=== PATIENT | female | born 1980 | race Caucasian/White ===

== ENCOUNTER 2018-05-07 13:00 | Inpatient (IN) | payer OTHER ==
[~2018-05-07] VITALS: Ht 162.6 cm; Wt 125.0 kg
[~2018-05-07 13:00] MED LIST: METOCLOPRAMIDE10 MG PO; PREPLUS CA-FE1 EACH PO; PROVENTIL HFA6.7 GM INH
--- NOTE | 2018-05-17 09:06 | NUR ---
05/17/18 0906 Nataliya Sanchez 0818 PT ARRIVED TO PACU AWAKE AND DENIES PAIN AND NAUSEA. PT ITCHY AND EDUCATION GIVEN ABOUT MEDICATION AND ITCHINESS. RESP EVEN AND UNLABORED.
--- NOTE | 2018-05-18 07:32 | PR ---
[facility] [address] [place], [place] [address] Signed PP Progress Notes Datetime Report Generated by CPPetar: 05/18/2018 07:32 SUBJECTIVE: [id number] Pain: Within normal limits Nausea/Vomiting: Denies Flatus: Yes Bowel Movement: No Vital Signs: [id number] Vital Signs: Reviewed EXAM: [id number] Cardiovascular: Normal Respiratory: Normal Abdomen/Uterus: Normal Lochia: Normal Vulva/Perineum: Not Done Breasts: Not Done CVA Tenderness: Normal Extremities: Abnormal Incision: Normal Progress: Abnormal Exam Comments: Fundus firm U-2 nontender. Midline incision well healing w/ miguel angel in place. LE w/ unchanged chronic lymphedema. IMPRESSION/PLAN/PROCEDURES: [id number] Impression: Normal progression Plan: Continue present management Progress Notes: Pt seen and examined. Doing well. Ambulating and tolerating full diet. Davila cath recently removed and pt has not voided yet. Pain well controlled with tylenol and occasional motrin. No GI upset. having difficulty w/ and bottlefeeding per pt. No fevers/chills/discharge. No other concerns. Hgb this morning 9.8. Continue routine pp care and will work w/ RN and peds on feeding. Signing Physician: Josiah Betancourt DO Copies: ~ *Electronically Signed* 05/18/18 0732 JOSIAH BETANCOURT DO PATIENT NAME: MARY LEACH PROGRESS NOTE DATE OF : 76 PHYSICIAN: JOSIAH BETANCOURT DO [facility] #: [id number] REPORT IS CONFIDENTIAL AND NOT TO BE RELEASED WITHOUT AUTHORIZATION
--- NOTE | 2018-05-19 08:53 | PR ---
[facility] [address] [place], [place] [address] Signed PP Progress Notes Datetime Report Generated by CPN: 05/19/2018 08:52 SUBJECTIVE: [id number] Pain: Within normal limits Nausea/Vomiting: Denies Flatus: Yes Bowel Movement: Yes Vital Signs: [id number] Vital Signs: Reviewed; Within Normal Limits EXAM: [id number] Cardiovascular: Normal Respiratory: Normal Abdomen/Uterus: Normal Lochia: Normal Vulva/Perineum: Not Done Breasts: Not Done CVA Tenderness: Normal Extremities: Abnormal Incision: Normal Progress: Normal Exam Comments: Fundus firm U-2, incision well healing w/ miguel angel in place. Stable LE edema IMPRESSION/PLAN/PROCEDURES: [id number] Impression: Normal progression Other Impression: Rh neg, rhogam prior to discharge Plan: Discharge Progress Notes: Pt seen and examined. Doing well. Ambulating, voiding, and tolerating full diet. Pain well controlled with tylenol alone. No GI upset. having difficulty w/ and bottlefeeding per pt. No fevers/chills/discharge. No other concerns. Desires d/c home today. Postop hgb 9.8. Plan: d/c home today. Reviewed pp instructions in detail. F/U early next week in office for staple removal. Pain well controlled w/ tylenol alone. Rhogam prior to discharge. Signing Physician: Josiah Betancourt DO Copies: ~ *Electronically Signed* 05/19/18 0872 JOSIAH BETANCOURT DO PATIENT NAME: HAYLEEMARY PROGRESS NOTE DATE OF : 76 PHYSICIAN: JOSIAH BETANCOURT DO RPT #: [id number] REPORT IS CONFIDENTIAL AND NOT TO BE RELEASED WITHOUT AUTHORIZATION
--- NOTE | 2018-05-27 13:12 | OR ---
[facility] [address] [place], [place] [address] Signed DATE OF OPERATION: 05/17/2018 SURGEON: Josiah Betancourt DO PREOPERATIVE DIAGNOSES: 1. Intrauterine at 38 weeks and 5 days' gestation. 2. History of prior low-transverse delivery. 3. Severe microcytic anemia secondary to malabsorption. 4. History of Gilma-en-Y. 5. Morbid obesity. 6. Rh negative, status post RhoGAM. 7. Desires tubal ligation. 8. History of pelvic adhesions. POSTOPERATIVE DIAGNOSES: 1. Intrauterine at 38 weeks and 5 days' gestation. 2. History of prior low-transverse delivery. 3. Severe microcytic anemia secondary to malabsorption. 4. History of Gilma-en-Y. 5. Morbid obesity. 6. Rh negative, status post RhoGAM. 7. Desires tubal ligation. 8. History of pelvic adhesions. PROCEDURES PERFORMED: 1. Repeat low transverse delivery. 2. Right partial salpingectomy. 3. Lysis of adhesions. MANAGER ENT: Lucinda López MD ANESTHESIA: Spinal. ESTIMATED BLOOD LOSS: 600 mL. COMPLICATIONS: None. Electronically Signed By: JOSIAH BETANCOURT DO 05/27/18 1312 PATIENT NAME: MARY TORIBIO OPERATIVE REPORT DATE OF : 76 REPORT #: [id number] PHYSICIAN: JOSIAH BETANCOURT DO PCP: ELZA MATT PA-C REPORT IS CONFIDENTIAL AND NOT TO BE RELEASED WITHOUT AUTHORIZATION [facility] [address] [place], [place] [address] Signed SPECIMENS: None. FINDINGS: Viable female , born in the W[place] position, weighing 6 pounds 10 ounces with Apgars of 8 and 9 at 1 and 5 minutes respectively. Normal bilateral ovaries and status post partial salpingectomy on the left. The lower uterine segment was quite thin that was reapproximated with one layer closure. Some adhesion of the omentum to the colon, which was lysed without difficulty. Otherwise, the remainder of the pelvis was fairly free of adhesive disease. COMPLICATIONS: None. INDICATIONS: Ms. Toribio is a pleasant 37-year-old G P white female who presented to Labor and Delivery for scheduled repeat low transverse delivery. was quite complicated by history of morbid obesity, status post Gilma-en-Y that led to severe malabsorption and iron-deficiency anemia. She also had a prior delivery and that the op note was significant for severe pelvic adhesions. The patient underwent IV iron infusions, but remained severely iron-deficient anemic and she was sent to Maternal Medicine for recommendations. They recommended either Epogen or preoperative transfusion and Hematology recommended preoperative transfusion. The patient received 2 units of packed red blood cells earlier in the week and 2 units of packed red blood cells were on standby if needed today. The patient also desired tubal ligation and an ethics committee letter was on file approving this. Risks, benefits, and alternatives were discussed in detail. The patient understands and wishes to proceed with the procedures. TECHNIQUE: The patient was taken to the operating room. A time-out was performed to confirm correct patient, correct procedure. Spinal anesthesia was adequately established and the patient was prepped and draped in the supine position with a bump under the right hip. Ancef 3 g were given preoperatively per SCIP protocol and the patient received preoperative heparin due to an elevated Caprini score. A Davila catheter was inserted and ICPs were on and running. After spinal was tested and found to be adequate, a midline incision was made over the prior scar using a surgical scalpel. The skin was incised and the subcu was dissected using Bovie electrocautery. Good hemostasis was achieved. The fascia was then incised using a surgical scalpel and a small window was created. The peritoneum was then entered bluntly and fascial and peritoneal incision were extended cephalad, caudad after careful palpation to ensure no Electronically Signed By: JOSIAH BETANCOURT DO 05/27/18 1312 PATIENT NAME: MARY TORIBIO OPERATIVE REPORT DATE OF : 76 REPORT #: [id number] PHYSICIAN: JOSIAH BETANCOURT DO PCP: ELZA MATT PA-C REPORT IS CONFIDENTIAL AND NOT TO BE RELEASED WITHOUT AUTHORIZATION [address] [address] Signed adhesive disease was encountered. After the fascia was opened adequately, the uterus and pelvis were examined and no significant pelvic adhesions were noted at this time. The lower segment was identified and was noted to be somewhat thin. An Leon self-retractor was then placed. The lower uterine segment was re-identified and incised using a surgical scalpel. The uterine segment was quite thin and hysterotomy was extended bilaterally using blunt dissection. The amniotic sac was ruptured and clear fluid was noted. The was then delivered with the assistance of fundal pressure without difficulty. No nuchal cord was identified. The was vigorous and cried at delivery, and the cord was doubly clamped and cut. The was handed to awaiting pediatric team for further care. Cord blood was obtained for routine analysis and then the placenta was manually expressed intact with centrally inserted three-vessel cord. The uterus was exteriorized and the uterine cavity cleared of any remaining products of conception or clot. Hysterotomy was then repaired using 0 Vicryl in a running locked manner. A small amount of oozing was noted in the midline. This was made hemostatic with a ptrfga-jy-eqoiu of 0 Vicryl and judicious Bovie electrocautery. A small amount of oozing was then noted after the pelvis was irrigated with warm water at the left edge of the hysterotomy. This was made hemostatic with several sutures of 0 Vicryl in bgepja-ip-[id number] manners with careful attention. Freddy powder was applied to the lower uterine segment and after hemostasis was appreciated, the Leon retractor was removed. Attention was then turned to tubal ligation. The left tube was noted to be previously undergone a partial left salpingectomy. Attention was then turned to the right fallopian tube, which appeared normal. It was grasped with Alfa's, elevated, and the mesosalpinx was noted to have increased vasculature. A clear space in the mesosalpinx was identified and entered using Bovie electrocautery. The tube was then clamped on either side of the window using hemostats and a portion of the tube was sharply excised using Metzenbaum scissors. Cut portions of the fallopian tube were ligated using 0 chromic free ties and good hemostasis was appreciated. The ovaries bilaterally were noted to be normal. A portion of the tube was sent to Pathology for further evaluation. The peritoneum, rectus, and fascia were densely scarred together and the decision was made to close these in a modified mass closure. The fascia was grasped with Jerrell's and elevated and mass closure was performed with 0 PDS in a running nonlocked manner. After each stitch, careful palpation of the anterior abdominal wall was performed to ensure that no bowel injury had been performed. Prior to fascial closure, one small band of adhesion of the omentum to the colon was noted. This was clamped on either end using hemostats and a portion of the band was excised. The omental edges were made hemostatic with 0 chromic with good hemostasis. After the fascial incision was closed, the subcu was irrigated and made hemostatic with a combination of Bovie electrocautery and Freddy powder. After good hemostasis was appreciated, ACell powder was applied to the subcu layer and subcu was reapproximated using 2-0 Vicryl in a running nonlocked manner. Skin was then reapproximated using surgical miguel angel. One portion of the incision was somewhat raw and this was reinforced with a subcuticular stitch of 4-0 Vicryl. The uterus was then Crede'd for scant amount Electronically Signed By: JOSIAH BETANCOURT DO 05/27/18 1312 PATIENT NAME: MARY TORIBIO OPERATIVE REPORT DATE OF : 76 REPORT #: [id number] PHYSICIAN: JOSIAH BETANCOURT DO PCP: ELZA MATT PA-C REPORT IS CONFIDENTIAL AND NOT TO BE RELEASED WITHOUT AUTHORIZATION [facility] [address] [place] [id number] Signed of blood, and the patient was taken to the PACU in good stable condition. Sponge, needle, and instrument count were correct x2 at the end of the procedure. Dr. López was present and participated in all portions of the procedure. Josiah Betancourt DO JDW/MODL /[id number] Copies: ~ Electronically Signed By: JOSIAH BETANCOURT DO 05/27/18 1312 PATIENT NAME: MARY TORIBIO OPERATIVE REPORT DATE OF : 76 REPORT #: [id number] PHYSICIAN: JOSIAH BETANCOURT DO PCP: ELZA MATT PA-C REPORT IS CONFIDENTIAL AND NOT TO BE RELEASED WITHOUT AUTHORIZATION
== END 2018-05-19 09:55 | disposition home or self-care (01) | DRG 784 ==
LOC: FBC 05-17 05:00
PROVIDERS: ADMIT Obstetrics & Gynecology
PROC: 10D00Z1 Extraction of Products of Conception, Low, Open Approach (ICD-10-PCS; principal; 2018-05-17 06:45)
PROC: 0UB50ZZ Excision of Right Fallopian Tube, Open Approach (ICD-10-PCS; 2018-05-17 06:45)
DX: O34.211 Maternal care for low transverse scar from previous cesarean delivery (principal); K90.9 Intestinal malabsorption, unspecified; N85.8 Other specified noninflammatory disorders of uterus; Z3A.38 38 weeks gestation of pregnancy; Z37.0 Single live birth; O99.844 Bariatric surgery status complicating childbirth; Z30.2 Encounter for sterilization; O99.214 Obesity complicating childbirth; E66.01 Morbid (severe) obesity due to excess calories; O99.02 Anemia complicating childbirth; D50.9 Iron deficiency anemia, unspecified; O99.62 Diseases of the digestive system complicating childbirth
CPT/HCPCS: 01961; 36415; 83030; 85027; 86850; 86900; 86901; 86920; C1763; J0131; J0690; J1644; J1650; J2300; J2405; J2590; J2790; J3010; J7120

== ENCOUNTER 2019-09-29 06:45 | Day surgery (SDC) | payer OTHER ==
[~2019-09-29] VITALS: Ht 162.6 cm; Wt 114.3 kg
[2019-09-29] MEDS ORDERED: DAILY MULTIPLE1 EACH PO (06:56)
--- NOTE | 2019-09-29 08:01 | NUR ---
PT ALERT, ORIENTED AND STATED THAT SHE HAS HAD THIS SURGERY BEFORE. PT SEEMS CONFIDENT AND INFORMED HAD FEW QUESTIONS. THANKED ME FOR COMING BYKENRICK PTSSNATIVIDAD
--- NOTE | 2019-09-29 10:00 | NUR ---
09/29/19 He Reina A ABDOMINAL BINDER ADJUSTED TO COVER INCISION / DRESSING AREA ON ENTRY TO PACU. FRAME BUILDER INJECTING PT WITH CLEAR FLUID FILLED SYRINGE DURING REPORT.
[2019-09-29] MEDS ORDERED: TYLENOL EXTRA500 MG PO (10:03)
[2019-09-29] MEDS ORDERED: PERCOCET 7.5-31 EACH PO (10:04)
[2019-09-29] MEDS ORDERED: MOTRIN IB200 MG PO (10:04)
--- NOTE | 2019-09-29 11:27 | NUR ---
PATIENT C/O NAUSEA. FSBS 106. NEW ORDER RECEIVED.
--- NOTE | 2019-09-29 12:58 | NUR ---
1245: PATIENT EDUCATED ON DRAIN CARE BY Luisana CHAO RN. PATIENT THEN RETURN DEMONSTRATED DRAIN STRIPPING AND EMPTYING. DISCHARGE INSTRUCTIONS GIVEN TO PATIENT. IV DC'D WNL. TIP INTACT. DRESSING APPLIED. PATIENT GETTING DRESSED INDEPENDENTLY. 1250: PATIENT DISCHARGED TO HOME VIA WHEELCHAIR WITH .
--- NOTE | 2019-09-30 11:16 | OR ---
[facility] [address] [place], [place] [address] Signed DATE OF OPERATION: 09/29/2019 SURGEON: Da Van MD PREOPERATIVE DIAGNOSES: 1. Morbid obesity, history of bariatric surgery. 2. Incisional hernia in lower abdomen (large defect 8 to 10 cm). PROCEDURES: 1. Repair of incisional hernia with implantation of Prolene mesh underlay technique. 2. Right unilateral component separation and medialization of linea alba. ANESTHESIA: General LMA; Da Desir CRNA and local 10 mL of 0.25% Marcaine with epinephrine. INDICATION: This 38-year-old obese woman is a patient of Dr. Betancourt and Dr. Hugo Hadley of [place]. She underwent bariatric surgery by Gilma-en-Y gastric bypass in 2010. She has had regain of a fair amount of weight. She has also had in the past for childbirth. She underwent hernia operation at [facility] in 2003, likely the left groin. She has left lower abdominal pain and findings on clinical examination show a significant fascial defect in the low midline and what appears to be the confluence of a low midline incision and a Pfannenstiel incision. She is admitted at this time to undergo repair of the hernia. She understands the risks of bleeding, infection, recurrence, and other unforeseen complications. She understands and she wished to proceed. FINDINGS: The fascial defect was relatively large at least 8 and possibly 10 cm in size. It was largely at the midline itself. A very large hernia sac about the size of a softball was noted. It did not have a narrow neck. The properitoneal space was developed and implantation of Prolene mesh in an underlay technique with at least 4 cm overlap was accomplished. A right-sided unilateral component separation of the external oblique fascia allowed for medialization of the linea alba. At conclusion, there is reapproximation of the midline fascia with an underlay of Prolene mesh, well secured. DESCRIPTION OF PROCEDURE: The patient was brought to the operating room, given a general anesthetic by LMA technique. Preoperative antibiotic Ancef was given. Sequential compression device stockings used and heparin was subcutaneously administered. The abdomen was prepared Electronically Signed By: DA VAN MD 09/30/19 1116 PATIENT NAME: MARY LEACH OPERATIVE REPORT DATE OF : 76 REPORT #: [id number] PHYSICIAN: DA VAN MD PCP: DARION ENRIQUEZ MD REPORT IS CONFIDENTIAL AND NOT TO BE RELEASED WITHOUT AUTHORIZATION [facility] [address] [place], [place] [address] Signed with a chlorhexidine solution and draped sterilely after clipping. She has significant abdominal wall pannus. An incision was made in the low midline incision. Dissection carried through the subcutaneous tissue with blunt and electrocautery dissection promptly identifying rather bulky hernia sac. This was from the surrounding subcutaneous tissue with blunt and electrocautery dissection. It was ultimately noted that her fascia was rather attenuated in the region of the hernia as would be expected. The hernia sac did not have a narrow neck and no sign of incarcerated hollow viscus. Hernia sac was dissected free from the fascial edges circumferentially using meticulous care and electrocautery as well as blunt dissection. The remaining fascial edges appeared to be reasonably hernandez. The properitoneal space was developed enough that there was at least 4-6 cm circumferential freeing of the properitoneal space. A segment of 6 inch x 6 inch Prolene mesh was cut to an elliptical configuration. It was then secured in the properitoneal space with interrupted 0 Prolene sutures with Prolene pledgets. Care was taken to extend the Prolene mesh as far as possible from the fascial edges. Optimal repair would include medialization of the linea alba of course. The subcutaneous tissue on the right side of the incision was elevated and the external oblique fascia incised laterally in a component separation approach. This allowed for relaxed medialization of the fascia and therefore, the left side did not require similar intervention. The midline fascia was then reapproximated over the mesh with interrupted 0 Prolene sutures with Prolene pledgets in a horizontal mattress configuration. A 10 mL of 0.25% Marcaine with epinephrine injected locally. Through the right lower quadrant stab incision, a 7 mm flat Familia drain was placed in the subcutaneous space. Tiara's layer was reapproximated with interrupted 2-0 Vicryl. The skin was then closed with running subcuticular 3-0 Vicryl. Steri-Strips were applied as was a silver sponge dressing. The drain was attached to bulb suction. The patient tolerated procedure well. There were no complications. Sponge, needle, and instrument counts were reported as correct x3. BLOOD LOSS: Less than 25 mL. MD BREANNA Haskins/BRAD /[id number] Electronically Signed By: DA VAN MD 09/30/19 1116 PATIENT NAME: MARY LEACH OPERATIVE REPORT DATE OF : 76 REPORT #: [id number] PHYSICIAN: DA VAN MD PCP: DARION ENRIQUEZ MD REPORT IS CONFIDENTIAL AND NOT TO BE RELEASED WITHOUT AUTHORIZATION [address] [address] Signed cc: MD Josiah Sheikh DO Copies: JOSIAH BETANCOURT DO ~ Electronically Signed By: DA VAN MD 09/30/19 1116 PATIENT NAME: MARY LEACH OPERATIVE REPORT DATE OF : 76 REPORT #: [id number] PHYSICIAN: DA VAN MD PCP: DARION ENRIQUEZ MD REPORT IS CONFIDENTIAL AND NOT TO BE RELEASED WITHOUT AUTHORIZATION
== END 2019-09-29 12:50 | disposition home or self-care (01) ==
LOC: DS 06:45
PROVIDERS: Surgery
PROC: 0WUF0JZ Supplement Abdominal Wall with Synthetic Substitute, Open Approach (ICD-10-PCS; principal; 2019-09-29 06:45)
DX: K43.2 Incisional hernia without obstruction or gangrene (principal); Z88.5 Allergy status to narcotic agent; Z98.84 Bariatric surgery status; Z68.41 Body mass index [BMI] 40.0-44.9, adult; E66.01 Morbid (severe) obesity due to excess calories
CPT/HCPCS: C1781; J0690; J1100; J1644; J1885; J2405; J2550; J2704; J3010; J7121